=== PATIENT | female | born 1965 | race Caucasian/White ===

== ENCOUNTER 2018-03-19 13:50 | Emergency (ER) | payer OTHER ==
[2018-03-19] MEDS ORDERED: Sodium Chloride 0.9% 2.5 ML Syringe FLUSH PRN (14:11)
[2018-03-19] MEDS ORDERED: Sodium Chloride 0.9% 1,000 ML IV ONE (14:11)
[2018-03-19] MEDS ORDERED: Sodium Chloride 0.9% 10 ML Syringe FLUSH PRN (14:11)
--- NOTE | 2018-03-19 14:22 | EDM.PDOC ---
ED HPI GENERAL MEDICAL PROBLEM - General Chief Complaint: Genitourinary Problem Stated Complaint: SICK Time Seen by Provider: 03/19/18 14:12 Source of Information: Reports: Patient History Limitations: Reports: No Limitations - History of Present Illness INITIAL COMMENTS - FREE TEXT/NARRATIVE: HISTORY AND PHYSICAL: History of present illness: Patient is a 52-year-old female here with complaint of left flank suprapubic pain. She states she has history of kidney stones years ago and it feels similar. He started this morning and comes and goes in severity. She denies any hematuria but does have some dysuria. She had one episode of vomiting this morning. Denies fevers, chills, diarrhea, constipation. She does note that when she is having a bowel movement when she feels somewhat crampy. She has a blood in her stools. Patient rates her pain a 3/10 at this time and declines need for pain medication. Review of systems: As per history of present illness and below otherwise all systems reviewed and negative. Past medical history: As per history of present illness and as reviewed below otherwise noncontributory. Surgical history: As per history of present illness and as reviewed below otherwise noncontributory. Social history: No reported history of drug or alcohol abuse. Family history: As per history of present illness and as reviewed below otherwise noncontributory. Physical exam: General: Patient sitting comfortably in no acute distress and nontoxic appearing HEENT: Atraumatic, normocephalic, pupils reactive, negative for conjunctival pallor or scleral icterus, mucous membranes moist, throat clear, neck supple, nontender, trachea midline. No meningeal signs. Lungs: Clear to auscultation, breath sounds equal bilaterally, chest nontender. Heart: S1S2, regular, negative for clicks, rubs, or overt murmur. Abdomen: Left lower quadrant tenderness to palpation. No rigidity or guarding. Negative McBurney's, Rovsing's, psoas, obturator. Soft, nondistended. Negative for masses or hepatosplenomegaly. Negative for costovertebral tenderness. Pelvis: Stable nontender. Genitourinary: Deferred. Rectal: Deferred. Extremities: Atraumatic, negative for cords or calf pain. Neurovascular unremarkable. Neuro: Awake, alert, oriented. Cranial nerves II through XII unremarkable. Cerebellum unremarkable. Motor and sensory unremarkable throughout. Exam nonfocal. Notes: 1545 - discussed with Dr. Bartholomew, he will see patient in the ED. 1550 - patient reports pain is 0/10 at this time 1420 - Dr. Bartholomew reviewed patients labs and CT in ED, he advised outpatient management with cipro and follow up in his office. Diagnostics: UA, UC, CBC, CMP Therapeutics: 1 L normal saline IV 750mg Levaquin IV Prescriptions: Ciprofloxacin Impression: UTI, nephrolithiasis Plan: 1. Take antibiotic and drinking plenty of fluids as instructed. 2. Follow-up with Dr. Bartholomew in his office, please call the number provided to schedule appointment. 3. Return to ED as needed as discussed Definitive disposition and diagnosis as appropriate pending reevaluation and review of above. Left Lower Abdominal Pain Score (Numeric/FACES): 4 - Related Data Allergies Allergy/AdvReac Type Severity Reaction Status Date / Time acetaminophen [From Percocet] Allergy Anaphylactic Verified 03/19/18 14:04 Shock cefprozil [From Cefzil] Allergy Rash Verified 03/19/18 14:04 morphine Allergy Hypotension Verified 03/19/18 14:04 oxycodone [From Percocet] Allergy Anaphylactic Verified 03/19/18 14:04 Shock Penicillins Allergy Anaphylactic Verified 03/19/18 14:04 Shock pseudoephedrine Allergy Itching Verified 03/19/18 14:04 [From Sudafed] Sulfa (Sulfonamide Allergy Other Verified 03/19/18 14:04 Antibiotics) Home Meds: Home Meds Ciprofloxacin HCl [Cipro] 500 mg PO BID 7 Days #14 tablet 03/19/18 [Rx] Past Medical History Genitourinary History: Reports: Pyelonephritis, Renal Calculus Oncologic (Cancer) History: Reports: Basal Cell Carcinoma, Squamous Cell Carcinoma - Infectious Disease History Infectious Disease History: Reports: Chicken Pox - Past Surgical History Female Surgical History: Reports: Hysterectomy, Other (See Below) Other Female Surgeries/Procedures: tumor removal from "the female parts" Musculoskeletal Surgical History: Reports: Other (See Below) Other Musculoskeletal Surgeries/Procedures:: L wrist repair. R shoulder repair Dermatological Surgical History: Reports: Other (See Below) ED ROS GENERAL - Review of Systems Review Of Systems: ROS reveals no pertinent complaints other than HPI. ED EXAM, RENAL/ - Physical Exam Exam: See Below (See dictation) Course - Vital Signs Last Recorded V/S: Last Vital Signs Temp 97.1 F 03/19/18 14:00 Pulse 88 03/19/18 16:17 Resp 16 03/19/18 16:17 BP 115/60 03/19/18 16:17 Pulse Ox 96 03/19/18 16:17 - Orders/Labs/Meds Orders: Active Orders 24 hr Category Date Time Status CULTURE URINE [RM] Stat Lab 03/19/18 14:15 Received Levofloxacin/Dextrose 5%-Water [Levaquin in D5W 750 MG/ Med 03/19/18 16:10 Ordered 150 ML] 750 mg Premix Bag 1 bag IV ONETIME Sodium Chloride 0.9% [Saline Flush] Med 03/19/18 14:11 Active 10 ml FLUSH ASDIRECTED PRN Sodium Chloride 0.9% [Saline Flush] Med 03/19/18 14:11 Active 2.5 ml FLUSH ASDIRECTED PRN Saline Lock Insert [OM.PC] Stat Oth 03/19/18 14:11 Ordered Medication Orders Levofloxacin/Dextrose 750 mg/ (Premix) 150 mls @ 100 mls/hr IV ONETIME ONE Stop: 03/19/18 17:39 Sodium Chloride (Saline Flush) 10 ml FLUSH ASDIRECTED PRN PRN Reason: Keep Vein Open Sodium Chloride (Saline Flush) 2.5 ml FLUSH ASDIRECTED PRN PRN Reason: Keep Vein Open Labs: Laboratory Tests 03/19/18 03/19/18 03/19/18 Range/Units 14:15 14:30 14:30 WBC 14.70 H (4.0-11.0) K/uL RBC 5.15 (4.30-5.90) M/uL Hgb 14.5 (12.0-16.0) g/dL Hct 43.3 (36.0-46.0) % MCV 84.1 (80.0-98.0) fL MCH 28.2 (27.0-32.0) pg MCHC 33.5 (31.0-37.0) g/dL RDW Std Deviation 40.3 (28.0-62.0) fl RDW Coeff of Bernie 13 (11.0-15.0) % Plt Count 263 (150-400) K/uL MPV 10.80 (7.40-12.00) fL Neut % (Auto) 85.6 H (48.0-80.0) % Lymph % (Auto) 11.1 L (16.0-40.0) % [place] % (Auto) 3.1 (0.0-15.0) % Eos % (Auto) 0.1 (0.0-7.0) % Baso % (Auto) 0.1 (0.0-1.5) % Neut # (Auto) 12.6 H (1.4-5.7) K/uL Lymph # (Auto) 1.6 (0.6-2.4) K/uL [place] # (Auto) 0.5 (0.0-0.8) K/uL Eos # (Auto) 0.0 (0.0-0.7) K/uL Baso # (Auto) 0.0 (0.0-0.1) K/uL Nucleated RBC % 0.1 /100WBC Nucleated RBCs # 0 K/uL Sodium 137 (136-145) mmol/L Potassium 4.0 (3.5-5.1) mmol/L Chloride 103 (98-107) mmol/L Carbon Dioxide 25.2 (21.0-32.0) mmol/L BUN 14 (7.0-18.0) mg/dL Creatinine 0.9 (0.6-1.0) mg/dL Est Cr Clr Drug Dosing 74.60 mL/min Estimated GFR (MDRD) > 60.0 ml/min Glucose 133 H (74-106) mg/dL Calcium 10.2 H (8.5-10.1) mg/dL Total Bilirubin 0.2 (0.2-1.0) mg/dL AST 14 L (15-37) IU/L ALT 26 (14-63) IU/L Alkaline Phosphatase 113 (46-116) U/L Total Protein 7.7 (6.4-8.2) g/dL Albumin 3.8 (3.4-5.0) g/dL Globulin 3.9 (2.6-4.0) g/dL Albumin/Globulin Ratio 1.0 (0.9-1.6) Urine Color YELLOW Urine Appearance SLT CLOUDY Urine pH 5.5 (5.0-8.0) Ur Specific Atkins 1.025 (1.001-1.035) Urine Protein NEGATIVE (NEGATIVE) mg/dL Urine Glucose (UA) NEGATIVE (NEGATIVE) mg/dL Urine Ketones NEGATIVE (NEGATIVE) mg/dL Urine Occult Blood LARGE H (NEGATIVE) Urine Nitrite POSITIVE H (NEGATIVE) Urine Bilirubin NEGATIVE (NEGATIVE) Urine Urobilinogen 0.2 (<2.0) EU/dL Ur Leukocyte Esterase SMALL H (NEGATIVE) Urine RBC 35-40 (0-2/HPF) Urine WBC 15-20 (0-5/HPF) Ur Epithelial Cells FEW (NONE-FEW) Urine Bacteria 3+ H (NEGATIVE) Urine Mucus LIGHT (NONE-MOD) Meds: Medications Generic Name Dose Route Start Last Admin Trade Name Freq PRN Reason Stop Dose Admin Levofloxacin/Dextrose 750 mg/ 150 mls @ 100 mls/hr 03/19/18 16:10 Premix IV 03/19/18 17:39 ONETIME ONE Sodium Chloride 10 ml 03/19/18 14:11 Saline Flush FLUSH ASDIRECTED PRN Keep Vein Open Sodium Chloride 2.5 ml 03/19/18 14:11 Saline Flush FLUSH ASDIRECTED PRN Keep Vein Open Discontinued Medications Generic Name Dose Route Start Last Admin Trade Name Freq PRN Reason Stop Dose Admin Sodium Chloride 1,000 mls @ 999 mls/hr 03/19/18 14:11 03/19/18 14:37 Normal Saline IV 03/19/18 15:11 999 mls/hr STAT ONE Administration Departure - Departure Time of Disposition: 16:30 Disposition: Home, Self-Care 01 Condition: Good Clinical Impression: UTI (urinary tract infection), Nephrolithiasis - Discharge Information Prescriptions: Ciprofloxacin HCl [Cipro] 500 mg PO BID 7 Days #14 tablet Referrals: PCP,Unknown [Primary Care Provider] - Forms: ED Department Discharge Additional Instructions: The following information is given to patients seen in the emergency department who are being discharged to home. This information is to outline your options for follow-up care. We provide all patients seen in our emergency department with a follow-up referral. The need for follow-up, as well as the timing and circumstances, are variable depending upon the specifics of your emergency department visit. If you don't have a primary care physician on staff, we will provide you with a referral. We always advise you to contact your personal physician following an emergency department visit to inform them of the circumstance of the visit and for follow-up with them and/or the need for any referrals to a consulting specialist. The emergency department will also refer you to a specialist when appropriate. This referral assures that you have the opportunity for follow-up care with a specialist. All of these measure are taken in an effort to provide you with optimal care, which includes your follow-up. Under all circumstances we always encourage you to contact your private physician who remains a resource for coordinating your care. When calling for follow-up care, please make the office aware that this follow-up is from your recent emergency room visit. If for any reason you are refused follow-up, please contact the [facility] Emergency Department at and asked to speak to the emergency department charge nurse. [facility] - Urology [address] [place] [phone] 1. Take antibiotic and drinking plenty of fluids as instructed. 2. Follow-up with Dr. Bartholomew in his office, please call the number provided to schedule appointment. 3. Return to ED as needed as discussed - My Orders Last 24 Hours: My Active Orders 03/19/18 14:11 Sodium Chloride 0.9% [Saline Flush] 10 ml FLUSH ASDIRECTED PRN Sodium Chloride 0.9% [Saline Flush] 2.5 ml FLUSH ASDIRECTED PRN Saline Lock Insert [OM.PC] Stat 03/19/18 14:15 CULTURE URINE [RM] Stat 03/19/18 16:10 Levofloxacin/Dextrose 5%-Water [Levaquin in D5W 750 MG/150 ML] 750 mg Premix Bag 1 bag IV ONETIME - Assessment/Plan Last 24 Hours: My Active Orders 03/19/18 14:11 Sodium Chloride 0.9% [Saline Flush] 10 ml FLUSH ASDIRECTED PRN Sodium Chloride 0.9% [Saline Flush] 2.5 ml FLUSH ASDIRECTED PRN Saline Lock Insert [OM.PC] Stat 03/19/18 14:15 CULTURE URINE [RM] Stat 03/19/18 16:10 Levofloxacin/Dextrose 5%-Water [Levaquin in D5W 750 MG/150 ML] 750 mg Premix Bag 1 bag IV ONETIME
[2018-03-19 14:58] LABS: CHLORIDE,CL 103 mmol/L (98-107); SODIUM,NA 137 mmol/L (136-145)
--- NOTE | 2018-03-19 15:28 | CT ---
INDICATION: Left lower quadrant pain which began today. TECHNIQUE: CT abdomen and pelvis performed without oral IV contrast. FINDINGS: Moderately prominent diffuse fatty infiltration of the liver with areas of focal fatty sparing especially adjacent to gallbladder. Moderate irregular vascular calcifications. Mild mosaic pattern in the lung bases could be related to perfusion anomaly, small airway disease or inflammation. Minimal linear atelectasis or scarring in the lung bases. Multiple stones in the left kidney with the location of the stones likely related to a combination of nephrolithiasis and medullary nephrocalcinosis. Mild dilatation of the left ureter and renal pelvis with mild dilatation of portions of left intrarenal collecting system with mild soft tissue stranding about the left ureter. No left ureteral stone is seen to account for these findings; however there is a small stone in the dependent aspect the urinary bladder measuring 3-4 mm on image 138. I suspect this stone has recently passed from the left ureter. Would suggest clinical correlation to determine if the patient`s pain has subsided or resolved. If the patient still has pain followup would be suggested to exclude other ureteral obstruction which is not seen on this noncontrast study. 2.8 cm low-density lesion in the right adrenal gland has Hounsfield density measurements of -9 and would be consistent with adrenal adenoma. Small duodenum diverticulum. Scattered abdominal retroperitoneal lymph nodes which are not enlarged. Hysterectomy. Appendix normal. Small cyst left kidney. Remainder negative. IMPRESSION: 1. 3-4 mm stone in the posterior urinary bladder likely is recently passed from the left ureter given the presence of hydronephrosis and ureteral dilatation with mild periureteral edema. Suggest clinical correlation to ensure the patient`s pain has subsided or decreased. If it has not repeat CT with IV contrast could evaluate for other ureteral obstruction etiology not seen on this study. 2. Hysterectomy. 3. Multiple stones in the left kidney consistent combination of nephrolithiasis and medullary nephrocalcinosis. 4. 2.8 cm right adrenal adenoma. 5. Mild mosaic pattern in the lung bases. Please note that all CT scans at this facility use dose modulation, iterative reconstruction, and/or weight-based dosing when appropriate to reduce radiation dose to as low as reasonably achievable. Dictated by Ranjan Infante MD @ Mar 19 2018 3:27PM Signed by Dr. Ranjan Infante @ Mar 19 2018 3:27PM
[2018-03-19] MEDS ORDERED: Levofloxacin/Dextrose 5%-Water 750 MG in Premix Bag 1 BAG IV ONE (16:10)
== END 2018-03-19 18:28 | disposition home or self-care (01) ==
LOC: MW.ED 13:50
DX: N39.0 Urinary tract infection, site not specified (principal); N13.2 Hydronephrosis with renal and ureteral calculous obstruction; Z88.5 Allergy status to narcotic agent; Z88.1 Allergy status to other antibiotic agents; Z88.0 Allergy status to penicillin; Z88.2 Allergy status to sulfonamides; Z90.710 Acquired absence of both cervix and uterus
CPT/HCPCS: 36415; 74176; 80053; 81001; 85025; 87086; 87088; 87186; 96361; 96365; 99284; J1956; J7040; 99283

== ENCOUNTER 2018-04-18 18:09 | Emergency (ER) | payer OTHER ==
--- NOTE | 2018-04-18 18:31 | EDM.PDOC ---
ED HPI GENERAL MEDICAL PROBLEM - General Chief Complaint: Skin Complaint Stated Complaint: PT HAS TOOTHACHE Time Seen by Provider: 04/18/18 18:15 - History of Present Illness INITIAL COMMENTS - FREE TEXT/NARRATIVE: HISTORY AND PHYSICAL: History of present illness: Patient is a 52-year-old white female presents with a concern of excoriated area to her left addison with swelling over last 24 hours. She denies fever chills nausea vomiting or other complaints Review of systems: As per history of present illness and below otherwise all systems reviewed and negative. Past medical history: As per history of present illness and as reviewed below otherwise noncontributory. Surgical history: As per history of present illness and as reviewed below otherwise noncontributory. Social history: No reported history of drug or alcohol abuse. Family history: As per history of present illness and as reviewed below otherwise noncontributory. Physical exam: HEENT: She has approximately 1 cm excoriated area to her left chin with some mild induration swelling no fluctuance., normocephalic, pupils reactive, negative for conjunctival pallor or scleral icterus, mucous membranes moist, throat clear, neck supple, nontender, trachea midline. Lungs: Clear to auscultation, breath sounds equal bilaterally, chest nontender. Heart: S1S2, regular, negative for clicks, rubs, or JVD. Abdomen: Soft, nondistended, nontender. Negative for masses or hepatosplenomegaly. Negative for costovertebral tenderness. Pelvis: Stable nontender. Genitourinary: Deferred. Rectal: Deferred. Extremities: Atraumatic, negative for cords or calf pain. Neurovascular unremarkable. Neuro: Awake, alert, oriented. Cranial nerves II through XII unremarkable. Cerebellum unremarkable. Motor and sensory unremarkable throughout. Exam nonfocal. Diagnostics: Deferred Therapeutics: None Impression: #1 cellulitis Definitive disposition and diagnosis as appropriate pending reevaluation and review of above. Left Jaw Pain Score (Numeric/FACES): 2 - Related Data Allergies Allergy/AdvReac Type Severity Reaction Status Date / Time cefaclor [From Ceclor] Allergy Swelling Verified 04/18/18 18:24 cefprozil [From Cefzil] Allergy Rash Verified 04/18/18 18:24 morphine Allergy Hypotension Verified 04/18/18 18:24 oxycodone [From Percocet] Allergy Anaphylactic Verified 04/18/18 18:24 Shock Penicillins Allergy Anaphylactic Verified 04/18/18 18:24 Shock pseudoephedrine Allergy Itching Verified 04/18/18 18:24 [From Sudafed] Sulfa (Sulfonamide Allergy Swelling Verified 04/18/18 18:24 Antibiotics) Home Meds: Home Meds . [No Known Home Meds] 04/18/18 [History] Past Medical History Genitourinary History: Reports: Pyelonephritis, Renal Calculus Oncologic (Cancer) History: Reports: Basal Cell Carcinoma, Squamous Cell Carcinoma - Infectious Disease History Infectious Disease History: Reports: Chicken Pox - Past Surgical History Female Surgical History: Reports: Hysterectomy, Other (See Below) Other Female Surgeries/Procedures: tumor removal from "the female parts" Musculoskeletal Surgical History: Reports: Other (See Below) Other Musculoskeletal Surgeries/Procedures:: L wrist repair. R shoulder repair Dermatological Surgical History: Reports: Other (See Below) Social & Family History - Caffeine Use Caffeine Use: Reports: Coffee ED ROS GENERAL - Review of Systems Review Of Systems: ROS reveals no pertinent complaints other than HPI. ED EXAM, SKIN/RASH Exam: See Below (See dictation) Course - Vital Signs Last Recorded V/S: Last Vital Signs Temp 35.6 C 04/18/18 18:17 Pulse 112 H 04/18/18 18:17 Resp 18 04/18/18 18:17 BP 145/86 H 04/18/18 18:17 Pulse Ox 95 04/18/18 18:17 Departure - Departure Time of Disposition: 18:31 Disposition: Home, Self-Care 01 Condition: Good Clinical Impression: Cellulitis - Discharge Information Additional Instructions: The following information is given to patients seen in the emergency department who are being discharged to home. This information is to outline your options for follow-up care. We provide all patients seen in our emergency department with a follow-up referral. The need for follow-up, as well as the timing and circumstances, are variable depending upon the specifics of your emergency department visit. If you don't have a primary care physician on staff, we will provide you with a referral. We always advise you to contact your personal physician following an emergency department visit to inform them of the circumstance of the visit and for follow-up with them and/or the need for any referrals to a consulting specialist. The emergency department will also refer you to a specialist when appropriate. This referral assures that you have the opportunity for followup care with a specialist. All of these measure are taken in an effort to provide you with optimal care, which includes your followup. Under all circumstances we always encourage you to contact your private physician who remains a resource for coordinating your care. When calling for followup care, please make the office aware that this follow-up is from your recent emergency room visit. If for any reason you are refused follow-up, please contact the [facility] emergency department at and asked to speak to the emergency department charge nurse. [facility] [address] [place] [id number] Clindamycin as prescribed Motrin/Tylenol as directed follow private medical doctor and/or clinical schedule routine appointment and return as needed as discussed
== END 2018-04-18 18:45 | disposition home or self-care (01) ==
LOC: MW.ED 18:09
DX: L03.211 Cellulitis of face (principal); Z88.1 Allergy status to other antibiotic agents; Z88.0 Allergy status to penicillin; Z88.2 Allergy status to sulfonamides; Z88.6 Allergy status to analgesic agent; Z88.5 Allergy status to narcotic agent
CPT/HCPCS: 99282